=== PATIENT | male | born 1995 | race Caucasian/White ===

== ENCOUNTER → 2020-11-07 | Outpatient (CLI) | payer OTHER ==
--- NOTE | 2020-11-07 15:51 | XR ---
EXAMINATION TYPE: XR chest 2V DATE OF EXAM: 11/07/2020 COMPARISON: 09/27/1999 INDICATION: Left-sided rib pain TECHNIQUE: Frontal and lateral views of the chest are obtained. FINDINGS: The heart size is normal. The pulmonary vasculature is normal. The lungs are clear. IMPRESSION: 1. No acute pulmonary process.
== END | disposition home or self-care (01) ==
LOC: RADXRMAIN 15:33
PROVIDERS: ATTEND Nurse Practitioner Family
DX: M94.0 Chondrocostal junction syndrome [Tietze] (principal)
CPT/HCPCS: 71046

== ENCOUNTER 2021-07-17 06:20 | Emergency (ER) | payer OTHER ==
[2021-07-17 06:29] VITALS: TEMP 97.8
--- NOTE | 2021-07-17 06:59 | ED ---
Chest Pain HPI - General Chief Complaint: Chest Pain Stated Complaint: High BP Time Seen by Provider: 07/17/21 06:32 Source: patient, RN notes reviewed Mode of arrival: ambulatory Limitations: no limitations - History of Present Illness Initial Comments: This a 25-year-old male presents emergency Department chief complaint of chest discomfort. Patient states that he is sitting at work and developed some sharp stabbing type pain in his chest, left arm. States is improved at this time is no prior cardiac disease though he does state that he was told he had severely elevated triglycerides but follow-up with dietitian advise him to do dietary changes he is on no medications. Patient found to be hypertensive, patient does not take any medications for hypertension no significant family cardiac disease history. Patient denies any fevers or chills no cough or cold-like symptoms. Patient states she has minimal shortness of breath no pleuritic pain - Related Data Home Medications Medication Instructions Recorded Confirmed Loratadine [Claritin] 10 mg PO DAILY PRN 07/17/21 07/17/21 Previous Rx's Medication Instructions Recorded lisinopriL 10 mg PO DAILY #30 tablet 07/17/21 Allergies Allergy/AdvReac Type Severity Reaction Status Date / Time No Known Allergies Allergy Verified 07/17/21 07:18 Review of Systems ROS Statement: Those systems with pertinent positive or pertinent negative responses have been documented in the HPI. ROS Other: All systems not noted in ROS Statement are negative. Past Medical History Past Medical History: No Reported History History of Any Multi-Drug Resistant Organisms: None Reported Past Surgical History: No Surgical Hx Reported Past Psychological History: ADD/ADHD Smoking Status: Vaper Past Alcohol Use History: None Reported Past Drug Use History: None Reported General Exam Limitations: no limitations General appearance: alert, in no apparent distress Head exam: Present: atraumatic, normocephalic, normal inspection Eye exam: Present: normal appearance, PERRL, EOMI. Absent: scleral icterus, conjunctival injection, periorbital swelling ENT exam: Present: normal exam, normal oropharynx, mucous membranes moist Neck exam: Present: normal inspection, full ROM. Absent: tenderness, meningismus, lymphadenopathy Respiratory exam: Present: normal lung sounds bilaterally. Absent: respiratory distress, wheezes, rales, rhonchi, stridor Cardiovascular Exam: Present: normal rhythm, tachycardia, normal heart sounds. Absent: systolic murmur, diastolic murmur, rubs, gallop, clicks GI/Abdominal exam: Present: soft, normal bowel sounds. Absent: distended, tenderness, guarding, rebound, rigid Back exam: Absent: CVA tenderness (R), CVA tenderness (L) Neurological exam: Present: alert Skin exam: Present: warm, dry, intact, normal color. 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 Patient blood pressure did improve still has mild hypertension was started on lisinopril. Patient will follow-up with PCP. Patient's troponin, d-dimer negative patient has no other acute findings. Disposition Clinical Impression: Atypical chest pain, Hypertension Disposition: HOME SELF-CARE Condition: Stable Instructions (If sedation given, give patient instructions): Chest Pain (ED), Hypertension (ED) Additional Instructions: Please return to the Emergency Department if symptoms worsen or any other concerns. Prescriptions: lisinopriL 10 mg PO DAILY #30 tablet Is patient prescribed a controlled substance at d/c from ED?: No Referrals: Zay Marquez MD [Primary Care Provider] - 1-2 days Time of Disposition: 07:58
[2021-07-17 07:10] LABS: Basophils # (A) 0.1 k/uL (0-0.2); Basophils % (A) 1 %; Eosinophils # (A) 0.2 k/uL (0-0.7); Eosinophils % (A) 2 %; HCT 46.7 % (39.0-53.0); HGB 16.9 gm/dL (13.0-17.5); Lymphocytes # (A) 3.2 k/uL (1.0-4.8); Lymphocytes % (A) 33 %; MCH 30.9 pg (25.0-35.0); MCHC 36.1 g/dL (31.0-37.0); MCV 85.5 fL (80.0-100.0); Mean Platelet Volume 6.7; Monocytes # (A) 0.8 k/uL (0-1.0); Monocytes % (A) 8 %; Neutrophils # (A) 5.3 k/uL (1.3-7.7); Neutrophils % (A) 54 %; Platelet Count 335 k/uL (150-450); RBC 5.47 m/uL (4.30-5.90); RDW 12.4 % (11.5-15.5); WBC 9.7 k/uL (3.8-10.6)
[2021-07-17 07:25] LABS: ALT 76 U/L (4-49); AST 45 U/L (17-59); African American GFR (CKD) >90 (>60 ml/min/1.73 sqM); Albumin 4.8 g/dL (3.5-5.0); Alkaline Phosphatase 66 U/L (38-126); Anion Gap 8 mmol/L; Blood Urea Nitrogen 12 mg/dL (9-20); Calcium 9.9 mg/dL (8.4-10.2); Carbon Dioxide 30 mmol/L (22-30); Chloride 102 mmol/L (98-107); Glucose 95 mg/dL (74-99); Non-African American GFR(CKD) >90 (>60 ml/min/1.73 sqM); Potassium 3.9 mmol/L (3.5-5.1); Sodium 140 mmol/L (137-145); Total Bilirubin 0.8 mg/dL (0.2-1.3); Total Protein 8.6 g/dL (6.3-8.2)
--- NOTE | 2021-07-17 07:32 | XR ---
EXAM: XR Chest, 2 Views CLINICAL HISTORY: ITS.REASON XR Reason: pain Chest pain since midnight no chronic conditions TECHNIQUE: Frontal and lateral views of the chest. COMPARISON: 11/07/2020 FINDINGS: Lungs: Low lung volumes. Lungs appear clear. Pleural space: Unremarkable. No pneumothorax. Heart: Unremarkable. No cardiomegaly. Mediastinum: Unremarkable. Bones/joints: Unremarkable. IMPRESSION: Low lung volumes. No evidence of acute cardiopulmonary process.
[2021-07-17] MEDS: LABETALOL 5 MG/ML VIAL MDV IVP STA ×2 (07:44→07:48)
[2021-07-17 07:53] VITALS: BP 147/93; PULSE 98; RESP 18
== END 2021-07-17 08:21 | disposition home or self-care (01) ==
LOC: EC 06:20
DX: R07.89 Other chest pain (principal); I10 Essential (primary) hypertension; F90.9 Attention-deficit hyperactivity disorder, unspecified type; F17.290 Nicotine dependence, other tobacco product, uncomplicated; Z79.899 Other long term (current) drug therapy
CPT/HCPCS: 36415; 71046; 80053; 84484; 85025; 85379; 93005; 99285

== ENCOUNTER 2021-07-20 09:24 | Observation (INO) | payer OTHER ==
[2021-07-20 10:10] LABS: Basophils # (A) 0.1 k/uL (0-0.2); Basophils % (A) 1 %; Eosinophils # (A) 0.3 k/uL (0-0.7); Eosinophils % (A) 3 %; HCT 44.2 % (39.0-53.0); HGB 15.4 gm/dL (13.0-17.5); Lymphocytes # (A) 3.4 k/uL (1.0-4.8); Lymphocytes % (A) 36 %; MCH 30.1 pg (25.0-35.0); MCHC 34.9 g/dL (31.0-37.0); MCV 86.2 fL (80.0-100.0); Mean Platelet Volume 6.9; Monocytes # (A) 0.7 k/uL (0-1.0); Monocytes % (A) 7 %; Neutrophils # (A) 4.9 k/uL (1.3-7.7); Neutrophils % (A) 51 %; Platelet Count 327 k/uL (150-450); RBC 5.13 m/uL (4.30-5.90); RDW 12.6 % (11.5-15.5); WBC 9.5 k/uL (3.8-10.6)
[2021-07-20 10:28] LABS: Partial Thromboplastin Time 23.9 sec (22.0-30.0); Prothrombin Time 10.3 sec (9.0-12.0)
[2021-07-20 10:32] LABS: ALT 74 U/L (4-49); AST 43 U/L (17-59); African American GFR (CKD) >90 (>60 ml/min/1.73 sqM); Albumin 4.4 g/dL (3.5-5.0); Alkaline Phosphatase 57 U/L (38-126); Anion Gap 9 mmol/L; Blood Urea Nitrogen 14 mg/dL (9-20); Calcium 9.5 mg/dL (8.4-10.2); Carbon Dioxide 27 mmol/L (22-30); Chloride 103 mmol/L (98-107); Glucose 122 mg/dL (74-99); Magnesium 1.9 mg/dL (1.6-2.3); Non-African American GFR(CKD) >90 (>60 ml/min/1.73 sqM); Potassium 4.1 mmol/L (3.5-5.1); Sodium 139 mmol/L (137-145); Total Bilirubin 0.6 mg/dL (0.2-1.3); Total Protein 7.9 g/dL (6.3-8.2)
--- NOTE | 2021-07-20 10:44 | XR ---
EXAMINATION TYPE: XR chest 2V DATE OF EXAM: 07/20/2021 COMPARISON: 07/17/21 HISTORY: dysrhythmia TECHNIQUE: Frontal and lateral views of the chest are obtained. FINDINGS: There is no focal air space opacity, pleural effusion, or pneumothorax seen. The cardiac silhouette size is within normal limits. The osseous structures are intact. IMPRESSION: No acute cardiopulmonary process.
--- NOTE | 2021-07-20 12:45 | ED ---
General Adult HPI - General Chief complaint: Arrhythmia/Palpitations Stated complaint: Revisit/High HR & BP Time Seen by Provider: 07/20/21 12:22 Source: patient, RN notes reviewed, old records reviewed Mode of arrival: ambulatory Limitations: no limitations - History of Present Illness Initial comments: 25-year-old male presenting for evaluation of dyspnea, tachycardia, and elevated blood pressure. Patient was evaluated emergency department within the past week for episode of chest pain. He ultimately was discharged to follow-up with his primary care physician who initiated lisinopril. This has been increased 3 days ago to 20 mg. No prior history of hypertension. No current chest pain. He does have some palpitations and dyspnea remaining. No fever. No cough. He has been eating and drinking well. - Related Data Home Medications Medication Instructions Recorded Confirmed Loratadine [Claritin] 10 mg PO DAILY PRN 07/17/21 07/20/21 Aspirin EC [Ecotrin Low Dose] 81 mg PO DAILY 07/20/21 07/20/21 lisinopriL 20 mg PO DAILY 07/20/21 07/20/21 Allergies Allergy/AdvReac Type Severity Reaction Status Date / Time No Known Allergies Allergy Verified 07/20/21 14:17 Review of Systems ROS Statement: Those systems with pertinent positive or pertinent negative responses have been documented in the HPI. ROS Other: All systems not noted in ROS Statement are negative. Past Medical History Past Medical History: Hypertension History of Any Multi-Drug Resistant Organisms: None Reported Past Surgical History: No Surgical Hx Reported Past Psychological History: No Psychological Hx Reported Smoking Status: Vaper Past Alcohol Use History: None Reported Past Drug Use History: None Reported General Exam Limitations: no limitations General appearance: alert, in no apparent distress Head exam: Present: atraumatic, normocephalic Eye exam: Present: normal appearance, PERRL, EOMI ENT exam: Present: normal exam Neck exam: Present: normal inspection. Absent: tenderness, meningismus Respiratory exam: Present: normal lung sounds bilaterally. Absent: respiratory distress, wheezes Cardiovascular Exam: Present: regular rate, normal rhythm GI/Abdominal exam: Present: soft. Absent: distended, tenderness, guarding Extremities exam: Present: normal inspection, normal capillary refill. Absent: pedal edema Neurological exam: Present: alert, oriented X3, CN II-XII intact. Absent: motor sensory deficit Psychiatric exam: Present: normal affect, normal mood Skin exam: Present: warm, dry, intact Course Vital Signs 07/20/21 07/20/21 09:31 12:57 Temperature 98.7 F Pulse Rate 116 H Pulse Rate [ 118 H Pulse Oximetery ] Respiratory 18 Rate Blood Pressure 134/91 O2 Sat by Pulse 98 Oximetry EKG Findings - EKG Comments: EKG Findings:: EKG: Normal sinus rhythm, sinus arrhythmia, rate 95, CO interval 138, QRS duration 94, QTC 49, no ST segment elevation, Medical Decision Making - Medical Decision Making 35-year-old male presenting for evaluation of chest pain, dyspnea, palpitations. Symptoms have been intermittent over the past several days. He has been started on lisinopril for high blood pressure. He does follow with Dr. Marquez. He he was sent to the emergency department for repeat evaluation by his primary care physician. He has severe hyperlipidemia, his triglycerides are 1100. He has an elevated LDL and a low HDL. He himself has no previous history of CAD. I did perform workup including laboratory testing, EKG, and CT angiography. CT angiography is negative for pulmonary embolism or acute findings. His troponin is negative. His EKG does have some nonspecific changes, no ST segment elevation. I discussed case with Dr. Marquez and plan currently is for admission with cardiology consultation. Case discussed with Dr. Montenegro who will admit. - Lab Data Result diagrams: 07/20/21 09:40 07/20/21 09:40 Lab Results 07/20/21 07/20/21 07/20/21 Range/Units 09:40 09:40 09:40 WBC 9.5 (3.8-10.6) k/uL RBC 5.13 (4.30-5.90) m/uL Hgb 15.4 (13.0-17.5) gm/dL Hct 44.2 (39.0-53.0) % MCV 86.2 (80.0-100.0) fL MCH 30.1 (25.0-35.0) pg MCHC 34.9 (31.0-37.0) g/dL RDW 12.6 (11.5-15.5) % Plt Count 327 (150-450) k/uL MPV 6.9 Neutrophils % 51 % Lymphocytes % 36 % Monocytes % 7 % Eosinophils % 3 % Basophils % 1 % Neutrophils # 4.9 (1.3-7.7) k/uL Lymphocytes # 3.4 (1.0-4.8) k/uL Monocytes # 0.7 (0-1.0) k/uL Eosinophils # 0.3 (0-0.7) k/uL Basophils # 0.1 (0-0.2) k/uL PT 10.3 (9.0-12.0) sec INR 1.0 (<1.2) APTT 23.9 (22.0-30.0) sec Sodium 139 (137-145) mmol/L Potassium 4.1 (3.5-5.1) mmol/L Chloride 103 (98-107) mmol/L Carbon Dioxide 27 (22-30) mmol/L Anion Gap 9 mmol/L BUN 14 (9-20) mg/dL Creatinine 1.03 (0.66-1.25) mg/dL Est GFR (CKD-EPI)AfAm >90 (>60 ml/min/1.73 sqM) Est GFR (CKD-EPI)NonAf >90 (>60 ml/min/1.73 sqM) Glucose 122 H (74-99) mg/dL Calcium 9.5 (8.4-10.2) mg/dL Magnesium 1.9 (1.6-2.3) mg/dL Total Bilirubin 0.6 (0.2-1.3) mg/dL AST 43 (17-59) U/L ALT 74 H (4-49) U/L Alkaline Phosphatase 57 (38-126) U/L Troponin I (0.000-0.034) ng/mL Total Protein 7.9 (6.3-8.2) g/dL Albumin 4.4 (3.5-5.0) g/dL 07/20/21 07/20/21 Range/Units 09:40 13:26 WBC (3.8-10.6) k/uL RBC (4.30-5.90) m/uL Hgb (13.0-17.5) gm/dL Hct (39.0-53.0) % MCV (80.0-100.0) fL MCH (25.0-35.0) pg MCHC (31.0-37.0) g/dL RDW (11.5-15.5) % Plt Count (150-450) k/uL MPV Neutrophils % % Lymphocytes % % Monocytes % % Eosinophils % % Basophils % % Neutrophils # (1.3-7.7) k/uL Lymphocytes # (1.0-4.8) k/uL Monocytes # (0-1.0) k/uL Eosinophils # (0-0.7) k/uL Basophils # (0-0.2) k/uL PT (9.0-12.0) sec INR (<1.2) APTT (22.0-30.0) sec Sodium (137-145) mmol/L Potassium (3.5-5.1) mmol/L Chloride (98-107) mmol/L Carbon Dioxide (22-30) mmol/L Anion Gap mmol/L BUN (9-20) mg/dL Creatinine (0.66-1.25) mg/dL Est GFR (CKD-EPI)AfAm (>60 ml/min/1.73 sqM) Est GFR (CKD-EPI)NonAf (>60 ml/min/1.73 sqM) Glucose (74-99) mg/dL Calcium (8.4-10.2) mg/dL Magnesium (1.6-2.3) mg/dL Total Bilirubin (0.2-1.3) mg/dL AST (17-59) U/L ALT (4-49) U/L Alkaline Phosphatase (38-126) U/L Troponin I <0.012 <0.012 (0.000-0.034) ng/mL Total Protein (6.3-8.2) g/dL Albumin (3.5-5.0) g/dL Disposition Clinical Impression: Palpitations, Chest pain Disposition: ADMITTED IP TO THIS [facility] Condition: Stable Is patient prescribed a controlled substance at d/c from ED?: No Referrals: Zay Marquez MD [Primary Care Provider] - 1-2 days Decision to Admit Reason: Admit from EC Decision Date: 07/20/21 Decision Time: 15:21
--- NOTE | 2021-07-20 14:17 | CT ---
EXAMINATION TYPE: CT angio chest DATE OF EXAM: 07/20/2021 1:59 PM COMPARISON: Chest radiograph the same day. HISTORY: Dyspnea, tachycardia CT DLP: 704.7 mGycm Automated exposure control for dose reduction was used. CONTRAST: CTA scan of the thorax is performed with IV Contrast, patient injected with 100 mL of Isovue 370, pul monary embolism protocol. FINDINGS: LUNGS: The lungs are grossly clear, there is no concerning parenchymal mass or nodule identified. T here is no pleural effusion or pneumothorax seen. The tracheobronchial tree is patent. MEDIASTINUM: There is non satisfactory enhancement of the pulmonary artery and its branches, there is no CT evidence for pulmonary embolism. There are no greater than 1 cm hilar or mediastinal lymph no glynn. No pericardial effusion is seen. OTHER: Diffuse low-attenuation to the liver parenchyma. IMPRESSION: 1. Limited Evaluation Due To The Contrast Bolus Timing Without Gross Evidence For Pulmonary Embolus. 2. Hepatic Steatosis
[2021-07-20] MEDS ORDERED: ASPIRIN 325 MG TAB PO STA (14:48)
[2021-07-20] MEDS ORDERED: SODIUM CHLORIDE 0.9% 500 ML 500 ML IV ONE (14:48)
[2021-07-20] MEDS: SODIUM CHLORIDE 0.9% 1,000 ML IV SCH (15:03)
[2021-07-20] MEDS ORDERED: NALOXONE 0.4 MG/ML 1 ML VIAL IV PRN (15:18)
[2021-07-20] MEDS ORDERED: ACETAMINOPHEN TAB 325 MG TAB PO PRN (15:18)
[2021-07-20 21:27] VITALS: RESP 18
[2021-07-20] MEDS ORDERED: LORATADINE 10 MG TAB PO PRN (21:34)
--- NOTE | 2021-07-20 22:10 | P.HPIM ---
History of Present Illness H&P Date: 07/20/21 Chief Complaint: Palpitations Patient is a 25-year-old male with a known history of hypertension presents to ER with complaints of palpitations. Patient states that he did have episode of palpitations yesterday and also this morning. Denied any complaints of chest pain at this time. Patient felt like heart beating fast. Denied any dizziness or lightheadedness. No headache. No nausea vomiting abdominal pain. No diaphoresis. Patient denied any cough or sputum production. No fever no chills. Patient was seen in the ER on 07/17/2021 with complaints of chest discomfort. Patient was also found to have elevated blood pressure and was started on lisinopril 10 mg p.o. daily and recommended to follow-up with primary care physician. Patient was seen by his PCP and was started aspirin and also increase lisinopril dose to 20 mg daily. On admission On admission blood pressure 134/91 pulse is 116 respiration 18 and pulse ox 98% on room air.. Patient has been afebrile. Laboratory showed WBC 9.5 hemoglobin 15.4 and platelets 327 Sodium 139 potassium 4.1 chloride 103 BUN 49 creatinine 1.03 AST 43 ALT 74 alk phos 57 and troponin x2 - and coronavirus PCR not detected. 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 Denies any drinking caffeine. Patient does vaping. Denies any recent stressors.Currently patient denied any complaints of chest pain or palpitations. Patient does take loratadine as needed for allergy symptoms. Review of Systems Constitutional: Patient denies any fever or chills . No generalized weakness or weight loss. Abdomen: Patient denied nausea vomiting and diarrhea and abdominal pain. Cardiovascular: Patient denies any chest pain or short of breath no palpitations. Respiratory: patient denied any cough or sputum production. No shortness of breath Neurologic: Patient denied any numbness or tingling headache. Musculoskeletal: Patient denies any complaints of joint swelling or deformity. Skin: Negative Psychiatric: Negative Endocrine: No heat or cold intolerance. No recent weight gain. Genitourinary: No dysuria or hematuria. All other 14 point ROS negative except the above Past Medical History Past Medical History: Hypertension History of Any Multi-Drug Resistant Organisms: None Reported Past Surgical History: No Surgical Hx Reported Past Anesthesia/Blood Transfusion Reactions: No Reported Reaction Past Psychological History: No Psychological Hx Reported Smoking Status: Vaper Past Alcohol Use History: None Reported Past Drug Use History: None Reported Medications and Allergies Home Medications Medication Instructions Recorded Confirmed Type Loratadine [Claritin] 10 mg PO DAILY PRN 07/17/21 07/20/21 History Aspirin EC [Ecotrin Low Dose] 81 mg PO DAILY 07/20/21 07/20/21 History lisinopriL 20 mg PO DAILY 07/20/21 07/20/21 History Allergies Allergy/AdvReac Type Severity Reaction Status Date / Time No Known Allergies Allergy Verified 07/20/21 14:17 Physical Exam Vitals: Vital Signs Temp Pulse Pulse Resp BP BP Pulse Ox 07/20/21 21:47 91 07/20/21 20:57 91 18 121/74 94 L 07/20/21 20:27 98.2 F 88 16 129/72 96 07/20/21 12:57 118 H 07/20/21 09:31 98.7 F 116 H 18 134/91 98 Intake and Output 07/20/21 07/20/21 07/20/21 06:59 14:59 22:59 Other: Weight 120.202 kg 120.202 kg PHYSICAL EXAMINATION: Patient is lying in the bed comfortably, no acute distress, awake alert and oriented.. HEENT: Normocephalic. Neck is supple. Pupils reactive. Nostrils clear. Oral cavity is moist. Neck reveals no JVD, carotid bruits, or thyromegaly. CHEST EXAMINATION: Trachea is central. Symmetrical expansion. Lung garcia clear to auscultation and percussion. CARDIAC: Normal S1, S2 with no gallops. No murmurs ABDOMEN: Soft. Bowel sounds normal. No organomegaly. No abdominal bruits. Extremities: reveal no edema. No clubbing or cyanosis Neurologically awake, alert, oriented x3 with well-coordinated movements. No focal deficits noted Skin: No rash or skin lesions. Psychiatric: Cooperative. Nonsuicidal Musculoskeletal: No joint swelling or deformity. Normal range of motion. Results CBC & Chem 7: 07/20/21 09:40 07/20/21 09:40 Labs: Abnormal Lab Results - Last 24 Hours (Table) 07/20/21 Range/Units 09:40 Glucose 122 H (74-99) mg/dL ALT 74 H (4-49) U/L Thrombosis Risk Factor Assmnt - DVT/VTE Prophylaxis DVT/VTE Prophylaxis: Mechanical Prophylaxis ordered - Choose All That Apply Each Factor Represents 1 point: Obesity (BMI >25) Thrombosis Risk Factor Assessment Total Risk Factor Score: 1 Thrombosis Risk Factor Assessment Level: Low Risk Assessment and Plan Assessment: Palpitations. Rule out arrhythmia. Uncontrolled blood pressure. Recently diagnosed hypertension. Hypertriglyceridemia. TG 1083. History of migraine headaches DVT prophylaxis with early ambulation Plan: Patient will be continued on telemetry monitoring. Patient will be started back on lisinopril and aspirin. TSH level was ordered. Cardiology was consulted for evaluation. Continue to follow closely. Time with Patient: Greater than 30
[2021-07-21] MEDS: SODIUM CHLORIDE 0.9% 1,000 ML IV SCH ×2 (05:19→18:26)
[2021-07-21] MEDS ORDERED: ASPIRIN 325 MG TAB PO SCH (09:00)
[2021-07-21] MEDS: lisinopriL 20 MG TAB PO SCH (09:04)
[2021-07-21] MEDS: ASPIRIN 81 MG PO SCH (09:04)
--- NOTE | 2021-07-21 13:40 | P.CRDCN ---
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 He has a history of smoking and most recently he does vape. Initially presented a few days ago with chest pain was seen and evaluated in the emergency department. He was found to be quite hypertensive and discharged home with lisinopril 10 mg daily. He followed up with his primary care physician Dr. Marquez and his blood pressure was still elevated and therefore the lisinopril was increased to 20 mg. At that time he had labs drawn and lipids showed triglycerides level of almost 1100. Yesterday after work he began to have some difficulty breathing at rest and palpitations. He contacted his primary care physician who advised him to come to the emergency department for further evaluation. CT of the chest was limited but showed no gross evidence for pulmonary embolus, hepatic steatosis. EKG showed sinus rhythm with no ischemic changes. Average her values on admission showed a normal ECG, potassium 4.1, BUN 14, creatinine 1.03, glucose 122, magnesium 1.9, AST 43, ALT 74 and troponins negative 4. Her pressure has been well-controlled. He was initially tachycardic but heart rate through the night and this morning has been in the 80s and 90s. He's been afebrile. Upon examination he is resting comfortably in bed. She has no further complaints of shortness of breath or palpitations. He's had no chest discomfort. In discussing with the patient he does not follow a very healthy diet. He does tend to drink soda any more fast food that he should. He is not very active. He drinks a couple caffeinated beverages a day and denies alcohol intake. Past Medical History Past Medical History: Hypertension History of Any Multi-Drug Resistant Organisms: None Reported Past Surgical History: No Surgical Hx Reported Past Anesthesia/Blood Transfusion Reactions: No Reported Reaction Past Psychological History: No Psychological Hx Reported Smoking Status: Vaper Past Alcohol Use History: None Reported Past Drug Use History: None Reported Medications and Allergies Home Medications Medication Instructions Recorded Confirmed Type Loratadine [Claritin] 10 mg PO DAILY PRN 07/17/21 07/20/21 History Aspirin EC [Ecotrin Low Dose] 81 mg PO DAILY 07/20/21 07/20/21 History lisinopriL 20 mg PO DAILY 07/20/21 07/20/21 History Allergies Allergy/AdvReac Type Severity Reaction Status Date / Time No Known Allergies Allergy Verified 07/20/21 14:17 Physical Exam Vitals: Vital Signs Temp Pulse Pulse Resp BP BP Pulse Ox 07/21/21 07:00 98 F 98 18 128/79 98 07/21/21 01:15 98.1 F 90 18 128/79 99 07/20/21 21:47 91 07/20/21 20:57 91 18 121/74 94 L 07/20/21 20:27 98.2 F 88 16 129/72 96 07/20/21 12:57 118 H Intake and Output 07/20/21 07/21/21 07/21/21 22:59 06:59 14:59 Intake Total 699 Balance 699 Intake: Oral 699 Other: # Voids 2 Weight 120.202 kg PHYSICAL EXAMINATION: This is a 25-year-old male in no apparent distress at the time of my examination. VITAL SIGNS: Blood pressure 128/79, heart rate 98, respirations 18, temp 98F. Patient is 98 % on room air. HEENT: Head is atraumatic, normocephalic. Pupils are equal, round. Sclerae anicteric. Conjunctivae are clear. Mucous membranes of the mouth are moist. Neck is supple. There is no elevated jugular venous pressure. No carotid bruit is heard. CHEST EXAMINATION: Clear to auscultation bilaterally. No wheezes rales or rhonchi. Respirations even and nonlabored. HEART EXAMINATION: Heart regular, positive S1 and S2. No S3. No S4. No clicks, rubs or murmurs. ABDOMEN: Soft, nontender. Bowel sounds are heard. No organomegaly noted. EXTREMITIES: 2+ peripheral pulses with no evidence of peripheral edema and no calf tenderness noted. NEUROLOGIC EXAMINATION: Patient is awake, alert and oriented x3. Results 07/20/21 09:40 07/20/21 09:40 Cardiac Enzymes 07/20/21 07/20/21 07/20/21 Range/Units 09:40 13:26 18:07 Troponin I <0.012 <0.012 <0.012 (0.000-0.034) ng/mL 07/20/21 Range/Units 21:24 Troponin I <0.012 (0.000-0.034) ng/mL Current Medications Generic Name Dose Route Start Last Admin Trade Name Fremhiir PRN Reason Stop Dose Admin Acetaminophen 650 mg 07/20/21 15:18 Acetaminophen Tab 325 Mg Tab PO Q6HR PRN Mild Pain or Fever > 100.5 Aspirin 81 mg 07/21/21 09:00 07/21/21 09:04 Aspirin 81 Mg PO 81 mg DAILY AIXA Administration Sodium Chloride 1,000 mls @ 75 mls/hr 07/20/21 15:00 07/21/21 05:19 Saline 0.9% IV Not Given .[id number] [id number] Lisinopril 20 mg 07/21/21 09:00 07/21/21 09:04 Lisinopril 20 Mg Tab PO 20 mg DAILY AIXA Administration Naloxone HCl 0.2 mg 07/20/21 15:18 Naloxone 0.4 Mg/Ml 1 Ml Vial IV Q2M PRN Opioid Reversal Intake and Output 07/20/21 07/21/21 07/21/21 22:59 06:59 14:59 Intake Total 699 Balance 699 Intake: Oral 699 Other: # Voids 2 Weight 120.202 kg 07/20/21 09:40 07/20/21 09:40 Assessment and Plan Assessment: #1 symptoms of shortness of breath and palpitations #2 chest pain a few days ago, acute coronary event has been ruled out, EKG shows no ischemic changes, troponins negative 4 #3 hypertension #4 hypertriglyceridemia Plan: From cardiology's perspective will obtain a 2-D echo with Doppler study to assess cardiac structure and function. We'll schedule the patient to undergo exercise stress test tomorrow. I do detailed discussion with the patient in regards to lifestyle modification including changing his diet to minimize process carbohydrates, fast food, soda, high sodium foods. Also discussed the importance of cessation of vaping. We will add fenofibrate. We will continue to follow the patient right further recommendations accordingly. The above dictated assessment and findings were discussed with signing chantale rdz. The impression and plan of care have been directed as dictated. Sita Garza, Nurse Practitioner, acting as scribe for signing physician.
[2021-07-21] MEDS: FENOFIBRATE 160 MG TAB PO SCH (15:30)
--- NOTE | 2021-07-22 00:33 | P.PN ---
Subjective Progress Note Date: 07/21/21 Patient is a 25-year-old male with a known history of hypertension presents to ER with complaints of palpitations. Patient states that he did have episode of palpitations yesterday and also this morning. Denied any complaints of chest pain at this time. Patient felt like heart beating fast. Denied any dizziness or lightheadedness. No headache. No nausea vomiting abdominal pain. No diaphoresis. Patient denied any cough or sputum production. No fever no chills. Patient was seen in the ER on 07/17/2021 with complaints of chest discomfort. Patient was also found to have elevated blood pressure and was started on lisinopril 10 mg p.o. daily and recommended to follow-up with primary care physician. Patient was seen by his PCP and was started aspirin and also increase lisinopril dose to 20 mg daily. On admission On admission blood pressure 134/91 pulse is 116 respiration 18 and pulse ox 98% on room air.. Patient has been afebrile. Laboratory showed WBC 9.5 hemoglobin 15.4 and platelets 327 Sodium 139 potassium 4.1 chloride 103 BUN 49 creatinine 1.03 AST 43 ALT 74 alk phos 57 and troponin x2 - and coronavirus PCR not detected. 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 Denies any drinking caffeine. Patient does vaping. Denies any recent stressors.Currently patient denied any complaints of chest pain or palpitations. Patient does take loratadine as needed for allergy symptoms. 07/21/2021 Patient is currently resting in bed comfortably. No complaints of chest pain. No palpitations. Blood pressure is well controlled this morning. 128/79 heart rate 98 pulse ox 98% on room air. Laboratory data showed troponin x4 - and TSH level is 2.290. No arrhythmias noted on the EKG. Patient restarted on fenofibrate due to hypertriglyceridemia. Cardiology is planning for stress test tomorrow. Current medications reviewed. Objective - Vital Signs Vital signs: Vital Signs Temp 97.7 F 07/21/21 15:00 Pulse 98 07/21/21 21:16 Resp 18 07/21/21 21:16 BP 141/72 07/21/21 15:00 Pulse Ox 92 L 07/21/21 15:00 Intake & Output 07/21/21 07/21/21 07/22/21 06:59 18:59 06:59 Intake Total 699 Balance 699 Weight 120.202 kg Intake: Oral 699 Other: Voiding Method Toilet # Voids 2 4 1 - Exam PHYSICAL EXAMINATION: Patient is lying in the bed comfortably, no acute distress, awake alert and oriented.. HEENT: Normocephalic. Neck is supple. Pupils reactive. Nostrils clear. Oral cavity is moist. Neck reveals no JVD, carotid bruits, or thyromegaly. CHEST EXAMINATION: Trachea is central. Symmetrical expansion. Lung garcia clear to auscultation and percussion. CARDIAC: Normal S1, S2 with no gallops. No murmurs ABDOMEN: Soft. Bowel sounds normal. No organomegaly. No abdominal bruits. Extremities: reveal no edema. No clubbing or cyanosis Neurologically awake, alert, oriented x3 with well-coordinated movements. No focal deficits noted Skin: No rash or skin lesions. Psychiatric: Cooperative. Nonsuicidal Musculoskeletal: No joint swelling or deformity. Normal range of motion. - Labs CBC & Chem 7: 07/20/21 09:40 07/20/21 09:40 Assessment and Plan Assessment: Palpitations. Ruled out arrhythmia. Uncontrolled blood pressure. Recently diagnosed hypertension. Hypertriglyceridemia. TG 1083. History of migraine headaches DVT prophylaxis with early ambulation Plan: Patient will be continued on telemetry monitoring. Patient will be started back on lisinopril and aspirin. TSH level WNL. Patient was started fenofibrate. Cardiology is planning for stress test tomorrow..
[2021-07-22 08:04] VITALS: BP 128/78; PULSE 90; TEMP 97.9
[2021-07-22] MEDS: ASPIRIN 81 MG PO SCH (08:42)
[2021-07-22] MEDS: lisinopriL 20 MG TAB PO SCH (08:42)
[2021-07-22] MEDS: FENOFIBRATE 160 MG TAB PO SCH (08:42)
--- NOTE | 2021-07-22 10:48 | P.PN ---
Subjective This is a pleasant 25-year-old male who does not follow with a excel specialist. He has a history of smoking and most recently he does vape. Initially presented a few days ago with chest pain was seen and evaluated in the emergency department. He was found to be quite hypertensive and discharged home with lisinopril 10 mg daily. He followed up with his primary care physician Dr. Marquez and his blood pressure was still elevated and therefore the lisinopril was increased to 20 mg. At that time he had labs drawn and lipids showed trigly cerides level of almost 1100. After work on 07/20/21 he began to have some difficulty breathing at rest and palpitations. He contacted his primary care physician who advised him to come to the emergency department for further evaluation. CT of the chest was limited but showed no gross evidence for pulmonary embolus, hepatic steatosis. EKG showed sinus rhythm with no ischemic changes. Troponins negative 4. 07/22/2021: Patient seen and examined at bedside, no acute distress. He is sitting up at the bedside chair. He denies any chest pain breath. Blood pressure 128/78, heart rate 90, afebrile, saturations greater than 92% on room air. He is currently maintained on aspirin 81 mg daily, losartan 160 mg daily, lisinopril 20 mg daily. He is scheduled for a post stress test and echocardiogram today. GENERAL: Well-appearing, well-nourished and in no acute distress. NECK: Supple without JVD or thyromegaly. LUNGS: Breath sounds clear to auscultation bilaterally. Respiration equal and unlabored. No wheezes, rales or rhonchi. HEART: Regular rate and rhythm without murmurs, rubs or gallops. S1 and S2 heard. EXTREMITIES: Normal range of motion, no edema. No clubbing or cyanosis. Peripheral pulses intact. ASSESSMENT Symptoms of shortness of breath and palpitations Chest pain, atypical, acute coronary syndrome has been ruled out, EKG shows no ischemic changes, troponin negative 4 Hypertension Hypertriglyceridemia PLAN Obtain 2-D echocardiogram to assess cardiac structure and function Plan for exercise stress test today. If echocardiogram with no acute finding in stress test is negative okay to discharge from cardiology perspective. Smoking and vape cessation discussed with patient and highly recommended. Lifestyle modification discussion with jase francis. Nurse Practitioner note has been reviewed, I agree with a documented findings and plan of care. Patient was seen and examined. Objective - Vital Signs Vital signs: Vital Signs Temp 97.9 F 07/22/21 07:00 Pulse 90 07/22/21 08:00 Resp 18 07/22/21 08:00 BP 128/78 07/22/21 07:00 Pulse Ox 95 07/22/21 07:00 Intake & Output 07/21/21 07/22/21 07/22/21 18:59 06:59 18:59 Intake Total 699 Balance 699 Intake: Oral 699 Other: Voiding Method Toilet Toilet # Voids 4 2 - Labs CBC & Chem 7: 07/20/21 09:40 07/20/21 09:40
--- NOTE | 2021-07-22 13:11 | P.STRESS ---
- Stress Test Note Stress Test Results/Findings: Exam Performed: stress test Exam Date: 07/22/21 Reason for Exam: CP Height: 5 ft 10 in Weight: 120.2 kg Protocol: FINN Stage: 4 Duration of Exercise: 9:32 Resting Heart Rate: 103 Resting Blood Pressure: 122/68 Maximum Achieved Heart Rate: 185 Maximum Achieved Blood Pressure: 169/79 85% PMHR: 167 100% PMHR: 196 METS: 11.2 Technologist Comment: Stress Test Results/Findings: Baseline heart rate 103 beats a minute, Baseline blood pressure 122/68 mmHg Twelve-lead EKG shows sinus rhythm normal ST segments Patient exercised on a Finn protocol for 9 minutes achieving a peak heart rate of 185 beats a minute Normal blood pressure response There was no evidence for ischemia No arrhythmias Impression Average exercise capacity for 25-year-old Asymptomatic Normal blood pressure response No ischemia and no arrhythmias
--- NOTE | 2021-07-22 16:37 | ECHOF ---
Referral Reason:Dyspnea MEASUREMENTS -------- HEIGHT: 180.3 cm WEIGHT: 120.2 kg BP: IVSd: 1.1 cm (0.6 - 1.1) LVIDd: 4.4 cm (3.9 - 5.3) LVPWd: 1.0 cm (0.6 - 1.1) EDV(Teich): 88 ml IVSs: 1.4 cm LVIDs: 2.0 cm LVPWs: 2.1 cm %IVS Thck: 31 % ESV(Teich): 13 ml EF(Teich): 85 % %FS: 54 % SV(Teich): 75 ml RVIDd: 3.2 cm (< 3.3) IVC: 18.98 mm LALs A4C: 5.3 cm LAAs A4C: 13.1 cm LAESV A-L A4C: 27 ml LAESV MOD A4C: 26 ml LALs A2C: 5.2 cm LAAs A2C: 11.6 cm LAESV A-L A2C: 22 ml LAESV MOD A2C: 20 ml LAESV(A-L): 25 ml LAESV Index (A-L): 10.34 ml/m Ao Diam: 3.2 cm (2.0 - 3.7) LA Diam: 3.1 cm (2.7 - 3.8) AV Cusp: 2.3 cm (1.5 - 2.6) EPSS: 1.0 cm MV E Tristen: 0.66 m/s MV DecT: 137 ms MV Dec Rush: 4.8 m/s MV A Tristen: 0.50 m/s MV E/A Ratio: 1.32 MV PHT: 40 ms MR Vmax: 0.83 m/s MR maxP.73 mmHg AV Vmax: 1.31 m/s AV maxP.86 mmHg TR Vmax: 1.60 m/s TR maxP.28 mmHg RAP: 5.00 mmHg RVSP: 15.28 mmHg MV EF SLOPE: 134.62 mm/s (70 - 150) MV EXCURSION: 24.30 mm (> 18.000) FINDINGS -------- This was a technically good study. The left ventricular size is normal. Left ventricular wall thickness is normal. Overall left vent ricular systolic function is normal with, an EF between 55 - 60 %. The diastolic filling pattern is normal for the age of the patient 6.18. The right ventricle is normal in size. The left atrial size is normal. Normal LA size by volume 22+/-6 ml/m2. The right atrial size is normal. Interatrial and interventricular septum intact. The aortic valve is trileaflet and appears structurally normal. The mitral valve is normal. There is trace mitral regurgitation. The tricuspid valve appears structurally normal. Trace tricuspid regurgitation present. Right alyssa tricular systolic pressure is normal at < 35 mmHg. There is no pulmonic regurgitation present. The aortic root size is normal. Normal inferior vena cava with normal inspiratory collapse consistent with estimated right atrial pre ssure of 5 mmHg. There is no pericardial effusion. CONCLUSIONS -------- 1. The left ventricular size is normal. 2. Left ventricular wall thickness is normal. 3. Overall left ventricular systolic function is normal with, an EF between 55 - 60 %. 4. The diastolic filling pattern is normal for the age of the patient 6.18 5. There is trace mitral regurgitation. 6. Trace tricuspid regurgitation present. 7. There is no pericardial effusion. PILLOW CLEANER: Liana Izaguirre RDCS
--- NOTE | 2021-07-23 19:58 | P.DS ---
Providers Date of admission: 07/20/21 15:18 Expected date of discharge: 07/22/21 Attending physician: Aaron Montenegro Consults: 07/20/21 15:19 Consult Physician Routine Consulting Provider: William Jung Consult Reason/Comments: cp, severe hyperlipidemia Do you want consulting provider notified?: Yes Primary care physician: Zay Marquez Hospital Course: Final diagnosis Palpitations. Ruled out arrhythmia. Uncontrolled blood pressure. Recently diagnosed hypertension. Hypertriglyceridemia. TG 1083. History of migraine headaches Continued ongoing nicotine dependence vaping DVT prophylaxis Full code Discharge disposition Patient is being discharged in a stable condition with guarded prognosis to home. Patient will follow-up with Dr. Marquez in the outpatient setting upon discharge. Patient will also need cardiology Dr. Olsen follow up. Patient to continue with current medications. Total time taken is greater than 35 minutes. Hospital course Patient is a 25-year-old male with a known history of hypertension presents to ER with complaints of palpitations. Patient states that he did have episode of palpitations yesterday and also this morning. Denied any complaints of chest pain at this time. Patient felt like heart beating fast. Denied any dizziness or lightheadedness. No headache. No nausea vomiting abdominal pain. No diaphoresis. Patient denied any cough or sputum production. No fever no chills. Patient was seen in the ER on 07/17/2021 with complaints of chest discomfort. Patient was also found to have elevated blood pressure and was started on lisinopril 10 mg p.o. daily and recommended to follow-up with primary care physician. Patient was seen by his PCP and was started aspirin and also increase lisinopril dose to 20 mg daily. On admission On admission blood pressure 134/91 pulse is 116 respiration 18 and pulse ox 98% on room air.. Patient has been afebrile. Laboratory showed WBC 9.5 hemoglobin 15.4 and platelets 327 Sodium 139 potassium 4.1 chloride 103 BUN 49 creatinine 1.03 AST 43 ALT 74 alk phos 57 and troponin x2 - and coronavirus PCR not detected. 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 Denies any drinking caffeine. Patient does vaping. Denies any recent stressors.Currently patient denied any complaints of chest pain or palpitations. Patient does take loratadine as needed for allergy symptoms. 07/21/2021 Patient is currently resting in bed comfortably. No complaints of chest pain. No palpitations. Blood pressure is well controlled this morning. 128/79 heart rate 98 pulse ox 98% on room air. Laboratory data showed troponin x4 - and TSH level is 2.290. No arrhythmias noted on the EKG. Patient restarted on fenofibrate due to hypertriglyceridemia. Cardiology is planning for stress test tomorrow. 07/22/2021 Patient seen and evaluated this morning and underwent stress echo which was normal. Encourage outpatient follow up and lifestyle risk factor modifications. Instructed patient to avoid tobacco and vaping. Currently no reports of chest pain, shortness of breath, or palpitations. Patient is afebrile. Patient will be discharged home today. Gen: This is 25-year-old female who is awake, alert and oriented 3, well- developed, well-nourished, obese HEENT: Head is atraumatic, normocephalic. Pupils equal, round. Sclerae is anicteric. NECK: Supple. No JVD. No lymphadenopathy. No thyromegaly. LUNGS: Breath sounds are diminished at the bases with no wheezing or rhonchi noted. No intercostal retractions. HEART: S1, S2 are muffled ABDOMEN: Soft. non-distended, Bowel sounds are present. No masses. No tenderness. EXTREMITIES: no edema No calf tenderness. NEUROLOGICAL: Alert and oriented 3, no focal deficit SKIN: no rashes or lesions noted Please refer to medication reconciliation sheet for a list of medications. Patient Condition at Discharge: Stable Plan - Discharge Summary Discharge Rx Participant: No New Discharge Prescriptions: New Fenofibrate [Lofibra] 160 mg PO DAILY 30 Days #30 tab Continue Loratadine [Claritin] 10 mg PO DAILY PRN PRN Reason: Allergy Symptoms Aspirin EC [Ecotrin Low Dose] 81 mg PO DAILY lisinopriL 20 mg PO DAILY Discharge Medication List Loratadine [Claritin] 10 mg PO DAILY PRN 07/17/21 [History] Aspirin EC [Ecotrin Low Dose] 81 mg PO DAILY 07/20/21 [History] lisinopriL 20 mg PO DAILY 07/20/21 [History] Fenofibrate [Lofibra] 160 mg PO DAILY 30 Days #30 tab 07/22/21 [Rx] Follow up Appointment(s)/Referral(s): Zay Marquez MD [Primary Care Provider] - 07/24/21 10:40 am Paul Olsen MD [STAFF PHYSICIAN] - 1 Week (office will call for follow up) Patient Instructions/Handouts: Chest Pain (DC), Heart Palpitations (DC), Electronic Cigarettes and Your Health (GEN) Activity/Diet/Wound Care/Special Instructions: Activity Limited until follow-up Follow-up with primary care provider on discharge Follow-up cardiology outpatient Follow heart healthy diet Continue medications as prescribed Avoid tobacco use and vaping Discharge Disposition: HOME SELF-CARE
== END 2021-07-22 15:12 | disposition home or self-care (01) ==
LOC: EC 09:24 → 6NMEDSUR 15:18
PROVIDERS: ADMIT Internal Medicine; ATTEND Internal Medicine
DX: R00.2 Palpitations (principal); R06.02 Shortness of breath; R07.89 Other chest pain; R00.0 Tachycardia, unspecified; I10 Essential (primary) hypertension; E78.1 Pure hyperglyceridemia; E78.5 Hyperlipidemia, unspecified; J30.2 Other seasonal allergic rhinitis; Z86.69 Personal history of other diseases of the nervous system and sense organs; F17.290 Nicotine dependence, other tobacco product, uncomplicated; Z20.822 Contact with and (suspected) exposure to COVID-19; Z87.891 Personal history of nicotine dependence; Z71.6 Tobacco abuse counseling; E66.9 Obesity, unspecified; Z68.38 Body mass index [BMI] 38.0-38.9, adult; Z79.82 Long term (current) use of aspirin; Z79.899 Other long term (current) drug therapy
CPT/HCPCS: 96361 ×3; 96360; 99285; 36415; 93005; 93017; 93306; 80053; 84443; 83735; 84484; 85025; 85610; 85730; 87635; 71046; 71275; G0378 ×3; Q9967

== ENCOUNTER → 2021-08-13 | Outpatient (CLI) | payer OTHER ==
--- NOTE | 2021-10-09 08:17 | EM ---
EVENT MONITOR Patient was monitored between August 13, 2021 and August 29, 2021. The rhythm strip revealed sinus mechanism with normal conduction. Episodes of sinus tachycardia were noted. No atrial fibrillation was noted. No ventricular tachycardia was noted. Symptoms of irregular beat or flutter did not correlate with any dysrhythmia. MMFRANCISCA / MADIN: [id number] /
== END | disposition home or self-care (01) ==
LOC: RADECHMAIN 12:29
PROVIDERS: ATTEND Family Medicine
DX: R00.0 Tachycardia, unspecified (principal)
CPT/HCPCS: 93270

== ENCOUNTER → 2022-01-09 | Outpatient (CLI) | payer OTHER ==
--- NOTE | 2022-01-09 09:19 | XR ---
EXAMINATION TYPE: XR wrist complete LT DATE OF EXAM: 01/09/2022 COMPARISON: None HISTORY: Pain TECHNIQUE: 4 view left wrist FINDINGS: No acute fracture or dislocation is evident. Soft tissues are normal. Joint spaces are pres erved. If there is pain at the anatomic snuff box, nuclear medicine bone scan could further evaluate this ar ea. Follow up exams can be performed 7-10 days from acute trauma for continued pain. IMPRESSION: 1. No acute osseous abnormality left wrist
== END | disposition home or self-care (01) ==
LOC: RADXRMAIN 09:01
PROVIDERS: ATTEND Family Medicine
DX: M25.532 Pain in left wrist (principal)

== ENCOUNTER → 2023-02-04 | Outpatient (CLI) | payer OTHER ==
--- NOTE | 2023-02-04 15:01 | P.SLEEP ---
History of Present Illness DATE: 02/04/2023 CONSULTATION/NEW PATIENT EVALUATION HISTORY OF PRESENT ILLNESS/SLEEP-WAKE EVALUATION: 27 year old gentleman had been evaluated in the sleep center for possible obstructive sleep apnea hypopnea syndrome. SLEEP SCHEDULE: Usually sleep schedule from 6 AM to 12 normal on working days and from midnight to 8 AM on days off. Patient works at [employer]. FALLING ASLEEP: Patient has problems with falling asleep, no TV in bedroom. DURING SLEEP: Patient usually sleeps on the side and stomach position with loud snoring and witnessed episodes of stop breathing during the sleep. Positive history of multiple awakenings up to 6 times with 4 episodes of nocturia, multiple kicking at night, possible sleepwalking. No history of sleep paralysis, or cataplexy. DURING THE DAY/WAKE STATE: Patient wake up tired after sleep, has difficulties to pay attention, has problems with concentration, irritability, sexual dysfunction. [place] sleepiness scale is 13, which indicates sleepiness. Usually patient doesn't take any additional naps. PAST MEDICAL HISTORY: Hypertension, hyperlipidemia, acid reflux, ALLERGY, asthma ,hypertrophy of tonsils. PAST SURGICAL HISTORY: [place] tooth removed. MEDICATIONS: Lisinopril 20 mg once a day, fenofibrate, Prilosec, albuterol. SOCIAL HISTORY: Positive for smoking, quit 2 years ago, alcohol consumption occasional. FAMILY HISTORY: Heart problems, cancer, diabetes mellitus. REVIEW OF SYSTEMS: Snoring, multiple awakenings from sleep, kicking during the sleep. No fevers. No double vision. No recent chest pain. No shortness of breath. No abdominal pain. No bleeding episodes. No blood in urine. No seizure episodes. PHYSICAL EXAMINATION: GENERAL: A pleasant patient without any distress. VITAL SIGNS: BP 121/78 , HR 72 , RR 12 , weight 261.2 pounds, height 5 foot 9 inches, body mass index 38.5 . HEENT: PERRLA, EOMI. Evaluation of oropharynx showed tongue protrudes midline, low position of soft palate Mallampati 23. Significant hypertrophy of tonsils size 34. NECK: Supple. No JVD. Thyroid is not palpable. 19 inches in circumference. LUNGS: Clear to percussion and to auscultation. Good air exchange. No wheezing or rhonchi. HEART: S1, S2 regular. No murmurs, gallops or rubs. ABDOMEN: Soft and nontender. Bowel sounds are present. No organomegaly appreciated. EXTREMITIES: No clubbing or cyanosis. PHYSICIAN INDUSTRIAL: Awake, alert, and oriented x3. Cranial nerves 2 to 7 intact. There is no fasciculation or atrophy noted. No focal deficits observed. ASSESSMENT: 1. Loud snoring, witnessed episodes of stop breathing during the sleep, small oropharyngeal airspace, wide neck 19 inches in circumference, significant sleepiness with [place] Sleepiness Scale 13. Obstructive sleep apnea hypopnea syndrome. 2. Significant amount of movements during the sleep, periodic limb movements, possibly out of dream movements. 3. Significant hypertrophy of tonsils size 34. 4. Obesity, body mass index 38.5. 5 shift work sleep disorder. 6 . Hypertension. 7. ALLERGY. 8. Restriction of nasal breathing, possibly nasal septum deviation. 9 . Hyperlipidemia. 10. Asthma. PLAN: 1. Polysomnography for evaluation of patient's breathing during sleep and for possible periodic limb movements. 2. CPAP/BiPAP titration if sleep study confirms obstructive sleep apnea- hypopnea syndrome. 3. Preferable position during sleep on the side. 4. No driving if patient feels any sleepiness. Patient is aware of civil and criminal liability for unsafe driving. 5. Sleep hygiene with regular sleep time for at least 7.5-8 hours. 6. Watching and losing weight. Thank you very much for referring this patient for consultation. Sincerely, Deandre Pittman MD, PhD, FAASM. Diplomat of [place] [employer], Sleep Medicine Board by [place] [employer] Administrator of [facility] [place] Past Medical History Past Medical History: Hypertension History of Any Multi-Drug Resistant Organisms: None Reported Past Surgical History: No Surgical Hx Reported Past Anesthesia/Blood Transfusion Reactions: No Reported Reaction Past Psychological History: No Psychological Hx Reported Smoking Status: Vaper Past Alcohol Use History: None Reported Past Drug Use History: None Reported Medications and Allergies Home Medications Medication Instructions Recorded Confirmed Type Loratadine [Claritin] 10 mg PO DAILY PRN 07/17/21 07/20/21 History Aspirin EC [Ecotrin Low Dose] 81 mg PO DAILY 07/20/21 07/20/21 History lisinopriL [Prinivil] 20 mg PO DAILY 07/20/21 07/20/21 History Fenofibrate [Lofibra] 160 mg PO DAILY 30 Days #30 tab 07/22/21 Rx Allergies Allergy/AdvReac Type Severity Reaction Status Date / Time No Known Allergies Allergy Verified 07/20/21 14:17 Sleep Note - Sleep Note Sleep Note: Temperature: Pulse Rate: Respiratory Rate: Blood Pressure: SpO2: Height: Weight: BMI: Neck Circumference:
== END ==
LOC: 3 N SLEEP 14:12
PROVIDERS: ATTEND Internal Medicine
DX: G47.33 Obstructive sleep apnea (adult) (pediatric) (principal); I10 Essential (primary) hypertension; E66.9 Obesity, unspecified; T78.40XA Allergy, unspecified, initial encounter; E78.5 Hyperlipidemia, unspecified; J45.909 Unspecified asthma, uncomplicated; G47.61 Periodic limb movement disorder; J35.1 Hypertrophy of tonsils; Z99.89 Dependence on other enabling machines and devices; Z68.38 Body mass index [BMI] 38.0-38.9, adult; Z79.899 Other long term (current) drug therapy; K21.9 Gastro-esophageal reflux disease without esophagitis
CPT/HCPCS: 99211

== ENCOUNTER 2023-02-22 20:21 | Emergency (ER) | payer OTHER ==
[2023-02-22 20:34] VITALS: RESP 18; TEMP 98.7
[2023-02-22] MEDS ORDERED: METOCLOPRAMIDE 5 MG/ML 2 ML VIAL IVP STA (21:05)
[2023-02-22] MEDS ORDERED: SODIUM CHLORIDE 0.9% 1,000 ML IV STA (21:05)
[2023-02-22] MEDS ORDERED: KETOROLAC 15 MG/ML 1 ML VIAL IVP STA (21:05)
[2023-02-22] MEDS ORDERED: diphenhydrAMINE 50 MG/ML 1 ML VIAL IVP STA (21:05)
--- NOTE | 2023-02-22 21:07 | ED ---
Headache HPI - General Chief Complaint: Headache Stated Complaint: Head pressure/pain Time Seen by Provider: 02/22/23 20:54 Mode of arrival: ambulatory Limitations: no limitations - History of Present Illness Initial Comments: Patient is a pleasant 27-year-old male presenting to the emergency room for further evaluation of intermittent sharp left-sided headaches that have been ongoing for 4 days. He reports that the headaches are brief but severe in nature and not consistent with his previous headaches. At the time that the headaches occur the sharp stabbing pain is slightly debilitating causing him to close his eyes and makes him nauseated however he denies any actual visual disturbances or nausea that persists once the pain subsides. He denies any focal neurological deficits including any weakness, altered mental status, dizziness or vomiting associated with his nausea. He reports occasional neck pain with his headache but denies any neck pain at this time. He denies any injury or recent trauma. He does report newly diagnosed hypertension which he is taking medication for and reports good pressure control. He denies any other significant past medical history. - Related Data Home Medications Medication Instructions Recorded Confirmed Loratadine [Claritin] 10 mg PO DAILY PRN 07/17/21 07/20/21 Aspirin EC [Ecotrin Low Dose] 81 mg PO DAILY 07/20/21 07/20/21 lisinopriL [Prinivil] 20 mg PO DAILY 07/20/21 07/20/21 Previous Rx's Medication Instructions Recorded Fenofibrate [Lofibra] 160 mg PO DAILY 30 Days #30 tab 07/22/21 Ibuprofen [Motrin] 800 mg PO Q8H PRN 7 Days #21 tab 02/22/23 Allergies Allergy/AdvReac Type Severity Reaction Status Date / Time No Known Allergies Allergy Verified 07/20/21 14:17 Review of Systems ROS Statement: Those systems with pertinent positive or pertinent negative responses have been documented in the HPI. ROS Other: All systems not noted in ROS Statement are negative. Past Medical History Past Medical History: Hypertension History of Any Multi-Drug Resistant Organisms: None Reported Past Surgical History: No Surgical Hx Reported Past Anesthesia/Blood Transfusion Reactions: No Reported Reaction Past Psychological History: No Psychological Hx Reported Smoking Status: Vaper Past Alcohol Use History: None Reported Past Drug Use History: None Reported General Exam Limitations: no limitations General appearance: alert, in no apparent distress Head exam: Present: atraumatic, normocephalic, normal inspection Expanded Head exam: Present: general tenderness. Absent: contusion, raccoon eyes, tenderness of temporal artery Eye exam: Present: normal appearance, PERRL, EOMI. Absent: scleral icterus, conjunctival injection, nystagmus, periorbital swelling ENT exam: Present: normal exam, mucous membranes moist Neck exam: Present: normal inspection, full ROM. Absent: tenderness, meningismus, lymphadenopathy Respiratory exam: Absent: respiratory distress, accessory muscle use Cardiovascular Exam: Present: regular rate GI/Abdominal exam: Present: soft. Absent: distended, tenderness, guarding, rebound, rigid Extremities exam: Present: normal inspection. Absent: pedal edema, joint swelling Back exam: Present: normal inspection, full ROM. Absent: vertebral tenderness Neurological exam: Present: alert, oriented X3, CN II-XII intact, normal gait Psychiatric exam: Present: normal affect, normal mood Skin exam: Present: warm, dry, intact, normal color. Absent: rash Course Vital Signs 02/22/23 02/22/23 02/22/23 20:31 21:30 22:40 Temperature 98.7 F 98.7 F Pulse Rate 98 78 79 Respiratory 18 18 18 Rate Blood Pressure 138/91 130/78 126/78 O2 Sat by Pulse 97 99 97 Oximetry Medical Decision Making - Medical Decision Making Was pt. sent in by a medical professional or institution ([facility], [employer], urgent care, hospital, or penitentiary...) When possible be specific @ -No Did you speak to anyone other than the patient for history (EMS, parent, family, police, friend...)? What history was obtained from this source @ -No Did you review nursing and triage notes (agree or disagree)? Why? @ -I reviewed and agree with nursing and triage notes Were old charts reviewed (outside hosp., previous admission, EMS record, old EKG, old radiological studies, urgent care reports/EKG's, penitentiary records)? Report findings @ -No old charts were reviewed Differential Diagnosis (chest pain, altered mental status, abdominal pain women, abdominal pain men, vaginal bleeding, weakness, fever, dyspnea, syncope, headache, dizziness, GI bleed, back pain, seizure, CVA, palpatations, mental health, musculoskeletal)? @ -Differential Headache: Migraine, tension, cluster, carbon monoxide, central venous thrombosis, pension karma temporal arteritis, acute closure glaucoma, intercranial hemorrhage, mastoiditis, sinusitis, head injury, this is not meant to be an all-inclusive list. EKG interpreted by me (3pts min.). @ -None done X-rays interpreted by me (1pt min.). @ -None done CT interpreted by me (1pt min.). @ -CT brain and cervical spine: No acute intracranial process, no mass, intrac ranial hemorrhage or shift. Cervical spine without fracture or subluxation. U/S interpreted by me (1pt. min.). @ -None done What testing was considered but not performed or refused? (CT, X-rays, U/S, labs)? Why? @ -None What meds were considered but not given or refused? Why? @ -None Did you discuss the management of the patient with other professionals (professionals i.e. , PA, [employer] OPERATOR, lab, RT, psych nurse, social service worker, systems technician, teacher, contract officer, assistant case manager)? Give summary @ -No Was smoking cessation discussed for >3mins.? @ -No Was critical care preformed (if so, how long)? @ -No Were there social determinants of health that impacted care today? How? (Homelessness, low income, unemployed, alcoholism, drug addiction, transportation, low edu. Level, literacy, decrease access to med. care, [facility], rehab)? @ -No Was there de-escalation of care discussed even if they declined (Discuss DNR or withdrawal of care, Hospice)? DNR status @ -No What co-morbidities impacted this encounter? (DM, HTN, Smoking, COPD, CAD, Cancer, CVA, ARF, Chemo, Hep., AIDS, mental health diagnosis, sleep apnea, morbid obesity)? @ -None Was patient admitted / discharged? Hospital course, mention meds given and route, prescriptions, significant lab abnormalities, going to OR and other pertinent info. @ -27-year-old male presents to the emergency room with complaints of intermittent headache which has new characteristics and occasional neck pain. Will start workup for head and neck pain with CT of the brain and cervical spine given new headache characteristics, CBC and CMP, and give migraine cocktail of major IV fluids, Reglan, Toradol and Benadryl. Anterolateral stabbing like sensation characteristic of headache will also check C-reactive protein and sedimentation rate. CT of the brain and cervical spine without any acute intracranial or cervical spine processes. CBC normal, CMP shows elevated random glucose at 106 otherwise no abnormalities. Sed rate and C-reactive protein levels both normal. Headache improved with migraine cocktail. No indication for further diagnostic imaging, laboratory studies or medication administration at this time. Results discussed with patient at length. Encouraged follow-up with primary care provider for further workup regarding headache/migraines. Encouraged continued use of antihypertensives for blood pressure control. Will give Motrin to utilize for pain as needed. Questions and concerns answered. Return parameters to the emergency room discussed. Will discharge home in stable condition on Motrin as needed for headache advising follow-up and further evaluation with primary care provider. Undiagnosed new problem with uncertain prognosis? @ -No Drug Therapy requiring intensive monitoring for toxicity (Heparin, Nitro, Insulin, Cardizem)? @ -No Were any procedures done? @ -No Diagnosis/symptom? @ -Headache Acute, or Chronic, or Acute on Chronic? @ -Acute Uncomplicated (without systemic symptoms) or Complicated (systemic symptoms)? @ -Uncomplicated Side effects of treatment? @ -No Exacerbation, Progression, or Severe Exacerbation? @ -No Poses a threat to life or bodily function? How? (Chest pain, USA, IA, pneumonia, PE, COPD, DKA, ARF, appy, cholecystitis, CVA, Diverticulitis, Homicidal, Suicidal, threat to staff... and all critical care pts) @ -No Case discussed with Dr. Guevara - Lab Data Result diagrams: 02/22/23 21:08 02/22/23 21:08 Lab Results 02/22/23 02/22/23 Range/Units 21:08 21:08 WBC 7.8 (3.8-10.6) k/uL RBC 5.05 (4.30-5.90) m/uL Hgb 15.3 (13.0-17.5) gm/dL Hct 43.8 (39.0-53.0) % MCV 86.7 (80.0-100.0) fL MCH 30.3 (25.0-35.0) pg MCHC 34.9 (31.0-37.0) g/dL RDW 13.1 (11.5-15.5) % Plt Count 338 (150-450) k/uL MPV 7.1 Neutrophils % 50 % Lymphocytes % 38 % Monocytes % 6 % Eosinophils % 3 % Basophils % 0 % Neutrophils # 3.9 (1.3-7.7) k/uL Lymphocytes # 2.9 (1.0-4.8) k/uL Monocytes # 0.5 (0-1.0) k/uL Eosinophils # 0.2 (0-0.7) k/uL Basophils # 0.0 (0-0.2) k/uL ESR 2 (0-15) mm/hr Sodium 137 (137-145) mmol/L Potassium 4.1 (3.5-5.1) mmol/L Chloride 103 (98-107) mmol/L Carbon Dioxide 24 (22-30) mmol/L Anion Gap 10 mmol/L BUN 16 (9-20) mg/dL Creatinine 1.07 (0.66-1.25) mg/dL Est GFR (CKD-EPI)AfAm >90 (>60 ml/min/1.73 sqM) Est GFR (CKD-EPI)NonAf >90 (>60 ml/min/1.73 sqM) Glucose 106 H (74-99) mg/dL Calcium 9.3 (8.4-10.2) mg/dL Total Bilirubin 0.5 (0.2-1.3) mg/dL AST 40 (17-59) U/L ALT 42 (4-49) U/L Alkaline Phosphatase 58 (38-126) U/L C-Reactive Protein <0.5 (<1.0) mg/dL Total Protein 7.9 (6.3-8.2) g/dL Albumin 4.6 (3.5-5.0) g/dL - Radiology Data Radiology results: report reviewed, image reviewed Disposition Clinical Impression: Headache Disposition: HOME SELF-CARE Condition: Stable Instructions (If sedation given, give patient instructions): Acute Headache (ED) Additional Instructions: Utilize Motrin 800 prescription for headaches as needed may also utilize [id number] Tylenol as needed as well. Do not take other NSAIDs while taking Motrin 800 prescription. Continue your blood pressure medication as prescribed by her primary care provider. Avoid products containing Sudafed or other decongestants. Please follow-up with your primary care provider. Please re turn to the Emergency Department if symptoms worsen or any other concerns. Prescriptions: Ibuprofen [Motrin] 800 mg PO Q8H PRN 7 Days #21 tab PRN Reason: Pain Is patient prescribed a controlled substance at d/c from ED?: No Referrals: Zay Marquez MD [Primary Care Provider] - 1-2 days Time of Disposition: 22:30
[2023-02-22 21:17] LABS: Basophils % (A) 0 %; Eosinophils # (A) 0.2 k/uL (0-0.7); Eosinophils % (A) 3 %; HCT 43.8 % (39.0-53.0); HGB 15.3 gm/dL (13.0-17.5); Lymphocytes # (A) 2.9 k/uL (1.0-4.8); Lymphocytes % (A) 38 %; MCH 30.3 pg (25.0-35.0); MCHC 34.9 g/dL (31.0-37.0); MCV 86.7 fL (80.0-100.0); Mean Platelet Volume 7.1; Monocytes # (A) 0.5 k/uL (0-1.0); Monocytes % (A) 6 %; Neutrophils # (A) 3.9 k/uL (1.3-7.7); Neutrophils % (A) 50 %; Platelet Count 338 k/uL (150-450); RBC 5.05 m/uL (4.30-5.90); RDW 13.1 % (11.5-15.5); WBC 7.8 k/uL (3.8-10.6)
--- NOTE | 2023-02-22 21:31 | CT ---
EXAMINATION TYPE: CT brain cspine wo con CT DLP: 1928.8 mGycm, Automated exposure control for dose reduction was used. DATE OF EXAM: 02/22/2023 9:26 PM COMPARISON: CT brain 03/14/2016. CLINICAL INDICATION:Male, 27 years old with history of new headache; New headache, LT side. Hx HTN. TECHNIQUE: Brain: Multiple axial CT images of the brain were obtained without IV contrast. Cspine: Axial CT images from the skull base to the inferior aspect of T2 we obtained without intraven ous contrast. Coronal and sagittal reformatted images were also reviewed. FINDINGS: Brain: Extra-axial spaces: No abnormal extra-axial fluid collections. Ventricular system: Within normal limits Cerebral parenchyma: No acute intraparenchymal hemorrhage or mass effect. The rader-white junction is well differentiated. Cerebellum: Unremarkable. Mass effect: No evidence of midline shift. Intracranial vasculature: unremarkable Soft tissues: Normal. Calvarium/osseous structures: No depressed skull fracture. Paranasal sinuses and mastoid air cells: Clear.Mastoid air cells are Clear Visualized orbits: Orbital contents are intact. Cervical spine: Fracture: None. Osseous structures: Unremarkable Vertebral alignment: Within normal limits. Spinal canal/Neural Foramina: No evidence of significant spinal canal narrowing. No evidence for sign ificant neural foraminal stenosis. Neck soft tissues: Prevertebral soft tissues are within normal limits. Other: The airway is patent. The lung apices are clear. IMPRESSION: No acute intracranial process. No evidence of cervical spine fracture.
[2023-02-22 21:45] LABS: ALT 42 U/L (4-49); AST 40 U/L (17-59); African American GFR (CKD) >90 (>60 ml/min/1.73 sqM); Albumin 4.6 g/dL (3.5-5.0); Alkaline Phosphatase 58 U/L (38-126); Anion Gap 10 mmol/L; Blood Urea Nitrogen 16 mg/dL (9-20); Calcium 9.3 mg/dL (8.4-10.2); Carbon Dioxide 24 mmol/L (22-30); Chloride 103 mmol/L (98-107); Glucose 106 mg/dL (74-99); Non-African American GFR(CKD) >90 (>60 ml/min/1.73 sqM); Potassium 4.1 mmol/L (3.5-5.1); Sodium 137 mmol/L (137-145); Total Bilirubin 0.5 mg/dL (0.2-1.3); Total Protein 7.9 g/dL (6.3-8.2)
[2023-02-22 21:46] LABS: C Reactive Protein <0.5 mg/dL (<1.0)
[2023-02-22 22:16] LABS: Erythrocyte Sedimentation Rate 2 mm/hr (0-15)
[2023-02-22 22:42] VITALS: BP 126/78; PULSE 79
== END 2023-02-22 22:42 | disposition home or self-care (01) ==
LOC: EC 20:21
DX: R51.9 Headache, unspecified (principal); I10 Essential (primary) hypertension; F17.290 Nicotine dependence, other tobacco product, uncomplicated; Z79.82 Long term (current) use of aspirin
CPT/HCPCS: 36415; 80053; 85652; 85025; 86140; 72125; 70450; 99284; 96374; 96375 ×2; 96361 ×5; J1200; J2765; J1885

== ENCOUNTER 2023-03-12 06:40 | Outpatient (CLI) | payer OTHER | END 2023-03-12 15:00 | disposition home or self-care (01) | LOC: 3 N SLEEP 06:40 | PROVIDERS: ATTEND Internal Medicine | DX: G47.33 Obstructive sleep apnea (adult) (pediatric) (principal) | CPT/HCPCS: 95810 ==

== ENCOUNTER → 2024-11-04 | Outpatient (CLI) | payer BC ==
--- NOTE | 2024-11-04 11:06 | XR ---
EXAMINATION TYPE: XR elbow complete RT DATE OF EXAM: 11/04/2024 10:50 AM COMPARISON: None CLINICAL INDICATION: Male, 29 years old with history of M25.521 PAIN IN RIGHT ELBOW; PHH, pain TECHNIQUE: XR elbow complete RT; elbow was examined in AP, lateral, and oblique projections. FINDINGS: No evidence of any acute osseous pathology, joint dislocation. Posterior soft tissue swell ing of the elbow. No evidence for joint effusion. No evidence for fracture. IMPRESSION: 1. Soft tissue swelling posterior elbow subcutaneous tissues correlate for cellulitis 2. No evidence of acute fracture. [facility], , 11/04/2024 11:04 AM
[2024-11-04 15:03] LABS: Basophils # (A) 0.05 X 10*3/uL (0.00-0.10); Basophils % (A) 0.7 %; Eosinophils # (A) 0.34 X 10*3/uL (0.04-0.35); Eosinophils % (A) 4.6 %; HGB 15.5 g/dL (13.0-17.0); Lymphocytes # (A) 2.61 X 10*3/uL (0.90-5.00); Lymphocytes % (A) 35.1 %; MCH 29.4 pg (27.0-32.0); MCHC 33.7 g/dL (32.0-37.0); MCV 87.3 FL (80.0-97.0); Monocytes # (A) 0.64 X 10*3/uL (0.20-1.00); Monocytes % (A) 8.6 %; NRBC Per 100 WBC 0 X 10*3/uL (0.00-0.01); Neutrophils # (A) 3.78 X 10*3/uL (1.80-7.70); Neutrophils % (A) 50.7 %; Platelet Count 401 X 10*3/uL (140-440); RBC 5.27 X 10*6/uL (4.40-5.60); RDW 12.7 % (11.5-14.5); WBC 7.44 X 10*3/uL (4.50-10.00)
[2024-11-04 15:26] LABS: ALT 89 U/L (10-49); AST 52 U/L (14-35); Albumin 4.5 g/dL (3.8-4.9); Albumin/Globulin Ratio 1.61 Ratio (1.60-3.17); Alkaline Phosphatase 69 U/L (41-126); Blood Urea Nitrogen 12.4 mg/dL (9.0-27.0); Calcium 9.9 mg/dL (8.7-10.3); Carbon Dioxide 27.2 mmol/L (21.6-31.8); Chloride 102 mmol/L (96-109); Chol/HDL Ratio 8.01 Ratio; Globulin 2.8 g/dL (1.6-3.3); Glucose 158 mg/dL (70-110); Potassium 4.5 mmol/L (3.5-5.5); Sodium 138 mmol/L (135-145); T4, Free (Free Thyroxine) 1.31 ng/dL (0.80-1.80); Total Bilirubin 0.6 mg/dL (0.3-1.2); Total Protein 7.3 g/dL (6.2-8.2)
== END | disposition home or self-care (01) ==
LOC: LABWHC1 10:12
PROVIDERS: ATTEND Nurse Practitioner Family
DX: M79.89 Other specified soft tissue disorders (principal); E78.1 Pure hyperglyceridemia; E55.9 Vitamin D deficiency, unspecified; M25.521 Pain in right elbow; R79.9 Abnormal finding of blood chemistry, unspecified
CPT/HCPCS: 36415; 80053; 80061; 82306; 83036; 83721; 84439; 84443; 85025